=== PATIENT | female | born 1965 | race Caucasian/White ===

== ENCOUNTER 2019-02-02 21:24 | Emergency (ER) | payer BC ==
[2019-02-02] MEDS ORDERED: Ticagrelor 90 MG Tab PO ONE (21:38)
[2019-02-02] MEDS ORDERED: Aspirin 81 MG Tab.Chew ONE (21:38)
[2019-02-02] MEDS ORDERED: Aspirin 81 MG Tab.Chew PO ONE (21:40)
--- NOTE | 2019-02-02 21:58 | EDM.PDOC ---
ED HPI GENERAL MEDICAL PROBLEM - General Chief Complaint: General Stated Complaint: left arm shooting pain, nausea Time Seen by Provider: 02/02/19 21:30 Source of Information: Reports: Patient History Limitations: Reports: No Limitations - History of Present Illness INITIAL COMMENTS - FREE TEXT/NARRATIVE: Patient is a 53-year-old female with known history of diabetes states that in the last 3 hours she's had 3 different episodes of shooting pain down her left arm started at home where she had the first 2 episodes the third episode was while driving to the hospital these episodes last about 20 seconds and then is gone she is also nauseated patient lately has been under increased stress at home Onset: Sudden Duration: Minutes:, Intermittent, Resolved Prior to Arrival Location: Reports: Chest Quality: Reports: Sharp Severity: Moderate Improves with: Reports: Rest Worsens with: Reports: None Associated Symptoms: Reports: Nausea/Vomiting - Related Data Allergies Allergy/AdvReac Type Severity Reaction Status Date / Time codeine Allergy Rash Verified 02/02/19 21:56 Penicillins Allergy Rash Verified 02/02/19 21:56 Home Meds: Home Meds Insulin Aspart [NovoLOG] 0 unit SUBCUT ASDIRECTED 09/16/14 [History] Losartan Potassium 50 mg PO BEDTIME 09/16/14 [History] Aspirin 1 tab PO BEDTIME 02/02/19 [History] Multivitamins [Tab-A-Jocelyn] 1 tab PO BEDTIME 02/02/19 [History] metFORMIN HCl [Metformin HCl ER] 1 tab PO BEDTIME 02/02/19 [History] Social & Family History - Living Situation & Occupation Living situation: Reports: ED ROS GENERAL - Review of Systems Review Of Systems: See Below Constitutional: Reports: Other (Nausea) HEENT: Reports: Glasses Respiratory: Reports: Cough Cardiovascular: Reports: No Symptoms, Chest Pain, Lightheadedness Endocrine: Reports: High Glucose GI/Abdominal: Reports: Nausea : Reports: No Symptoms Musculoskeletal: Reports: Other (Left arm shooting pain which comes sporasticly lasting 20 -30 seconds) Skin: Reports: No Symptoms Neurological: Reports: No Symptoms Psychiatric: Reports: No Symptoms Hematologic/Lymphatic: Reports: No Symptoms Immunologic: Reports: No Symptoms ED EXAM, GENERAL - Physical Exam Exam: See Below Exam Limited By: No Limitations General Appearance: Alert, WD/WN, Anxious, Mild Distress Ears: Normal External Exam, Normal Canal, Hearing Grossly Normal, Normal TMs Nose: Normal Inspection, Normal Mucosa, No Blood Throat/Mouth: Normal Inspection, Normal Lips, Normal Teeth, Normal Gums, Normal Oropharynx, Normal Voice, No Airway Compromise Head: Atraumatic, Normocephalic Neck: Normal Inspection, Supple, Non-Tender, Full Range of Motion Respiratory/Chest: No Respiratory Distress, Lungs Clear, Normal Breath Sounds, No Accessory Muscle Use, Chest Non-Tender Cardiovascular: Normal Peripheral Pulses, Regular Rate, Rhythm, No Edema, No Gallop, No JVD, No Murmur, No Rub GI/Abdominal: Normal Bowel Sounds, Soft, Non-Tender, No Organomegaly, No Distention, No Abnormal Bruit, No Mass (Female) Exam: Deferred Rectal (Female) Exam: Deferred Back Exam: Normal Inspection, Full Range of Motion, NT Extremities: Normal Inspection, Normal Range of Motion, Non-Tender, Normal Capillary Refill, No Pedal Edema Neurological: Alert, Oriented, CN II-XII Intact, Normal Cognition, Normal Gait, Normal Reflexes, No Motor/Sensory Deficits Psychiatric: Normal Affect, Normal Mood Skin Exam: Warm, Dry, Intact, Normal Color, No Rash Lymphatic: No Adenopathy Course - Vital Signs Last Recorded V/S: Last Vital Signs Temp 98.0 F 02/02/19 21:24 Pulse 70 02/03/19 01:50 Resp 18 02/03/19 01:50 BP 109/68 02/03/19 01:50 Pulse Ox 98 02/03/19 01:50 - Orders/Labs/Meds Orders: Active Orders 24 hr Category Date Time Status Chest 1V Frontal [CR] Stat Exams 02/02/19 21:50 Taken Labs: Laboratory Tests 02/02/19 02/02/19 02/02/19 Range/Units 21:56 21:56 21:56 WBC 7.2 (4.0-10.2) K/uL RBC 4.53 (3.77-5.09) M/uL Hgb 13.6 (11.7-15.5) g/dL Hct 39.4 (34.0-46.0) % MCV 87.0 (84.0-98.0) fL MCH 30.0 (28.2-33.3) pg MCHC 34.5 (31.7-36.0) g/dL RDW 12.9 (11.2-14.1) % Plt Count 202 (150-350) K/uL Neut % (Auto) 55.5 (45.0-80.0) % Lymph % (Auto) 33.6 (10.0-50.0) % [place] % (Auto) 8.2 (2.0-14.0) % Eos % (Auto) 2.1 (0.0-5.0) % Baso % (Auto) 0.6 (0.0-2.0) % Neut # (Auto) 3.99 (1.40-7.00) K/uL Lymph # (Auto) 2.41 (0.50-3.50) K/uL [place] # (Auto) 0.59 (0.00-1.00) K/uL Eos # (Auto) 0.15 (0.00-0.50) K/uL Baso # (Auto) 0.04 (0.00-0.20) K/uL Sodium 143 (136-145) mmol/L Potassium 4.5 (3.5-5.1) mmol/L Chloride 105 (98-107) mmol/L Carbon Dioxide 29.7 (21.0-32.0) mmol/L BUN 15 (7-18) mg/dL Creatinine 0.05 L (0.51-1.17) mg/dL Est Cr Clr Drug Dosing 1256.02 mL/min Estimated GFR (MDRD) > 60 mL/min Glucose 161 H (74-106) mg/dL Lactic Acid 1.4 (0.4-2.0) mmol/L Calcium 9.4 (8.5-10.1) mg/dL Magnesium 1.8 (1.8-2.4) mg/dL Total Bilirubin 0.3 (0.2-1.0) mg/dL AST 27 (15-37) U/L ALT 26 (12-78) U/L Alkaline Phosphatase 122 H (46-116) IU/L Creatine Kinase 84 (26-308) U/L Creatine Kinase Index 0.6 (0.0-2.5) % CK-MB (CK-2) 0.50 (0.00-3.60) ng/mL Troponin I 0.000 (0.000-0.056) ng/mL NT-Pro-B Natriuret Pep 46 (0-125) pg/mL Total Protein 7.9 (6.4-8.2) g/dL Albumin 3.7 (3.4-5.0) g/dL 02/03/19 Range/Units 02:10 WBC (4.0-10.2) K/uL RBC (3.77-5.09) M/uL Hgb (11.7-15.5) g/dL Hct (34.0-46.0) % MCV (84.0-98.0) fL MCH (28.2-33.3) pg MCHC (31.7-36.0) g/dL RDW (11.2-14.1) % Plt Count (150-350) K/uL Neut % (Auto) (45.0-80.0) % Lymph % (Auto) (10.0-50.0) % [place] % (Auto) (2.0-14.0) % Eos % (Auto) (0.0-5.0) % Baso % (Auto) (0.0-2.0) % Neut # (Auto) (1.40-7.00) K/uL Lymph # (Auto) (0.50-3.50) K/uL [place] # (Auto) (0.00-1.00) K/uL Eos # (Auto) (0.00-0.50) K/uL Baso # (Auto) (0.00-0.20) K/uL Sodium (136-145) mmol/L Potassium (3.5-5.1) mmol/L Chloride (98-107) mmol/L Carbon Dioxide (21.0-32.0) mmol/L BUN (7-18) mg/dL Creatinine (0.51-1.17) mg/dL Est Cr Clr Drug Dosing mL/min Estimated GFR (MDRD) mL/min Glucose (74-106) mg/dL Lactic Acid (0.4-2.0) mmol/L Calcium (8.5-10.1) mg/dL Magnesium (1.8-2.4) mg/dL Total Bilirubin (0.2-1.0) mg/dL AST (15-37) U/L ALT (12-78) U/L Alkaline Phosphatase (46-116) IU/L Creatine Kinase (26-308) U/L Creatine Kinase Index (0.0-2.5) % CK-MB (CK-2) (0.00-3.60) ng/mL Troponin I 0.000 (0.000-0.056) ng/mL NT-Pro-B Natriuret Pep (0-125) pg/mL Total Protein (6.4-8.2) g/dL Albumin (3.4-5.0) g/dL Meds: Medications Discontinued Medications Generic Name Dose Route Start Last Admin Trade Name Sumitq PRN Reason Stop Dose Admin Aspirin Confirm 02/02/19 21:38 02/02/19 22:23 Aspirin Administered 02/02/19 21:39 Not Given Dose 324 mg .ROUTE .STK-MED ONE Aspirin 324 mg 02/02/19 21:40 02/02/19 21:40 Aspirin PO 02/02/19 21:41 324 mg ONETIME ONE Administration Ticagrelor Confirm 02/02/19 21:38 02/02/19 22:24 Brilinta Administered 02/02/19 21:39 Not Given Dose 180 mg PO .STK-MED ONE Departure - Departure Time of Disposition: 02:36 Disposition: Home, Self-Care 01 Condition: Fair Clinical Impression: Arm pain - Discharge Information *PRESCRIPTION DRUG MONITORING PROGRAM REVIEWED*: No *COPY OF PRESCRIPTION DRUG MONITORING REPORT IN PATIENT [place]AMA: No Referrals: PCP,Unknown [Primary Care Provider] - Forms: ED Department Discharge Care Plan Goals: We'll keep patient for 6 hours in the ER recheck troponins at 2 if still negative we'll send home.troponin negative tme 2we will send here home at this time. - My Orders Last 24 Hours: My Active Orders 02/02/19 21:50 Chest 1V Frontal [CR] Stat - Assessment/Plan Last 24 Hours: My Active Orders 02/02/19 21:50 Chest 1V Frontal [CR] Stat
[2019-02-02 22:22] LABS: CHLORIDE,CL 105 mmol/L (98-107); SODIUM,NA 143 mmol/L (136-145)
[2019-02-03 02:09] VITALS: BP 109/68; PULSE 70
== END 2019-02-03 02:50 | disposition home or self-care (01) ==
LOC: LL.ED 21:24
DX: M79.602 Pain in left arm (principal); E11.9 Type 2 diabetes mellitus without complications; Z79.4 Long term (current) use of insulin; Z79.82 Long term (current) use of aspirin; Z79.899 Other long term (current) drug therapy; Z88.5 Allergy status to narcotic agent; Z88.0 Allergy status to penicillin
CPT/HCPCS: 36415; 71045; 80053; 82550; 82553; 83605; 83735; 83880; 84484; 85025; 99284; A9270